=== PATIENT | male | born 1980 | race Caucasian/White ===

== ENCOUNTER 2025-01-17 13:01 | Outpatient (OUT) | payer MEDICAID, SELFPAY ==
--- OUTSIDE RECORDS SUMMARY | 2025-01-17 13:08 | XMS_ITS | Clinical Summary ---
Author Organization [facility] Sys tem Address [id number] [address] [place] [address] Care Team Providers Care Government Relations Manager Name Role Phone Unavailable Primary Care Provider Unavailabl e Social History Tobacco Use Types Packs/Day Years Used Date Smoking Tobacco: Never Assessed Childcare Answer Date Recorded Childcare Unknown 10/13/2018 Employment Answer Date Recorded Employment Unknown 10/13/2018 Sex and Gender Information Value Date Recorded Sex Assigned at Not on file Legal Sex Male 12:06 PM EDT Gender Identity Not on file Sexual Orientation Not on file Plan of Treatment Upcoming Encounters Date Type Department Care Team (Late st Contact Info) Description 01/23/2025 9:20 AM EDT [facility] [address] [place] [address] [place] [id number] Joan Ramirez, [employer] TECHNICIAN-[employer] AND [employer] [address], [place], [place] [id number] Health Maintenance Due Date Last Done Comments Depression Screening 1992 Tobacco Screening 1992 Adult BMI Screening 1998 DTaP,Tdap and Td Vaccines (1 - Tdap) 07/25/1999 Influenza Vaccine 01/02/2025 Medical Devices Not on file
[2025-01-17 13:46] LABS: Hematocrit 39.2 % (42.0-54.0); Hemoglobin 12.8 g/dL (14.0-18.0); Immature Granulocytes Abs Auto 0.02 10^3/uL (0.00-0.03); Immature Granulocytes Pct Auto 0.5 % (0.0-0.5); Lymphocytes Absolute Auto 1.0 10^3/uL (1.2-3.8); Mean Corpuscular HGB Conc 32.7 g/dL (29.9-35.2); Mean Corpuscular Hemoglobin 29.9 pg (25.9-34.0); Mean Corpuscular Volume 91.6 fL (80.0-94.0); Platelet Count 150 10^3/uL (150-450); Red Blood Count 4.28 10^6/uL (4.70-6.10); White Blood Count 4.1 10^3/uL (4.0-11.0)
[2025-01-17 13:55] LABS: INR 1.05; Partial Thromboplastin Time 27.4 sec (22.3-36.2); Prothrombin Time 11.1 sec (9.0-11.6)
[2025-01-17 14:06] LABS: Alanine Aminotransferase 223 U/L (16-63); Alkaline Phosphatase 83 U/L (46-116); Aspartate Amino Transferase 100 U/L (15-37)
[2025-01-17 14:07] LABS: Alanine Aminotransferase 233 U/L (16-63); Albumin Globulin Ratio 1.0; Albumin Level 3.9 g/dL (3.4-5.0); Alkaline Phosphatase 85 U/L (46-116); Anion Gap 11.2; Aspartate Amino Transferase 99 U/L (15-37); Blood Urea Nitrogen 15.0 mg/dL (7.0-18.0); Calcium 9.0 mg/dL (8.5-10.1); Carbon Dioxide 30.0 mmol/L (21.0-32.0); Chloride 105 mmol/L (98-107); Estimated GFR (African America >60 (>=60 mL/min/1.73m^2); Estimated GFR (Non-African Ame >60 (>=60 mL/min/1.73m^2); Globulin 3.9 g/dL; Glucose 95 mg/dL (74-106); Potassium 4.2 mmol/L (3.5-5.1); Sodium 142 mmol/L (136-145); Total Protein 7.8 g/dL (6.4-8.2)
== END 2025-01-17 13:02 | disposition home or self-care (01) ==
PROVIDERS: Visit Provider Nurse Practitioner Family
DX: F11.20 Opioid dependence, uncomplicated (principal)
CPT/HCPCS: 36415; 80053; 84075; 84450; 84460; 85025; 85610; 85730; 86317; 86704; 87340; 87522; 87902